=== PATIENT | male | born 1955 | race Caucasian/White ===

== ENCOUNTER 2023-10-30 10:20 | Outpatient (OUT) | payer MEDICARE, SELFPAY ==
[2023-10-30 11:57] LABS: Prostate Specific Antigen Scrn 2.71 ng/mL (<=4.00)
[2023-10-30 13:14] LABS: Alanine Aminotransferase 32 U/L (16-63); Albumin Globulin Ratio 1.1; Albumin Level 3.8 g/dL (3.4-5.0); Alkaline Phosphatase 75 U/L (46-116); Anion Gap 11.4; Aspartate Amino Transferase 18 U/L (15-37); BUN Creatinine Ratio 21.6; Bilirubin Total 0.6 mg/dL (0.2-1.0); Calcium 8.8 mg/dL (8.5-10.1); Carbon Dioxide 27.9 mmol/L (21.0-32.0); Chloride 105 mmol/L (98-107); Chol HDL Ratio 2.2; Cholesterol 139 mg/dL (<=200); Estimated GFR (African America >60 (>=60); Estimated GFR (Non-African Ame >60 (>=60); Globulin 3.5 g/dL; Glucose 100 mg/dL (74-106); HDL Cholesterol 64 mg/dL (40-60); Potassium 4.3 mmol/L (3.5-5.1); Sodium 140 mmol/L (136-145); Total Protein 7.3 g/dL (6.4-8.2); Triglycerides 34 mg/dL (<=150); VLDL CHOLESTEROL 6.8 mg/dL
== END 2023-10-30 10:21 | disposition home or self-care (01) ==
LOC: LAB 10:22
PROVIDERS: PCP Family Medicine; Visit Provider Family Medicine
DX: Z00.00 Encounter for general adult medical examination without abnormal findings (principal); Z12.5 Encounter for screening for malignant neoplasm of prostate; E78.00 Pure hypercholesterolemia, unspecified
CPT/HCPCS: 36415; 80053; 80061; G0103

== ENCOUNTER 2025-02-15 11:33 | Outpatient (OUT) | payer MEDICARE, SELFPAY ==
[2025-02-15 12:58] LABS: Alanine Aminotransferase 39 U/L (16-63); Albumin Globulin Ratio 1.1; Albumin Level 3.9 g/dL (3.4-5.0); Alkaline Phosphatase 87 U/L (46-116); Anion Gap 10.4; Aspartate Amino Transferase 19 U/L (15-37); BUN Creatinine Ratio 19.2; Bilirubin Total 0.7 mg/dL (0.2-1.0); Calcium 8.9 mg/dL (8.5-10.1); Carbon Dioxide 27.7 mmol/L (21.0-32.0); Chloride 105 mmol/L (98-107); Estimated GFR (African America >60 (>=60 mL/min/1.73m^2); Estimated GFR (Non-African Ame >60 (>=60 mL/min/1.73m^2); Globulin 3.6 g/dL; Glucose 99 mg/dL (74-106); Potassium 4.1 mmol/L (3.5-5.1); Sodium 139 mmol/L (136-145); Total Protein 7.5 g/dL (6.4-8.2)
[2025-02-15 14:12] LABS: Prostate Specific Antigen Scrn 2.07 ng/mL (<=4.00)
== END 2025-02-15 11:34 | disposition home or self-care (01) ==
LOC: LAB 11:34
PROVIDERS: PCP Family Medicine; Visit Provider Family Medicine
DX: E78.00 Pure hypercholesterolemia, unspecified (principal); Z12.5 Encounter for screening for malignant neoplasm of prostate
CPT/HCPCS: 36415; 80053; G0103